=== PATIENT | male | born 1970 | race Caucasian/White ===

== ENCOUNTER 2021-07-21 15:38 | Emergency (ER) | payer BC ==
[~2021-07-21] VITALS: Ht 188 cm; Wt 79.5 kg
[2021-07-21 15:42] VITALS: BP 151/102
[2021-07-21] MEDS ORDERED: bacitracin 15gm ointment TP ONE (15:50)
[2021-07-21] MEDS ORDERED: TETanus/Pertussis (Acell)/Diphther VAC/PF (Tdap-Adult) 0.5ml syringe IMVAC ONE (15:50)
--- NOTE | 2021-07-21 16:28 | NUR ---
im given topical abx applied by poonam pitts
[2021-07-21] MEDS ORDERED: cephalexin 250mg capsule PO ONE (17:50)
[2021-07-21] MEDS ORDERED: HYDR-3965 PO (17:50)
[2021-07-21] MEDS ORDERED: HYDROcodone/acetaminophen 10/325mg tab PO ONE (17:50)
[2021-07-21] MEDS ORDERED: CEPH250T PO (17:50)
== END 2021-07-21 18:19 | disposition home or self-care (01) ==
LOC: ER 15:38
DX: S92.492B Other fracture of left great toe, initial encounter for open fracture (principal); Z79.899 Other long term (current) drug therapy; W18.39XA Other fall on same level, initial encounter; Y93.89 Activity, other specified; Y92.89 Other specified places as the place of occurrence of the external cause; Y99.8 Other external cause status
CPT/HCPCS: 12001; 73660; 90471; 90715; 99284